=== PATIENT | female | born 1960 | race Caucasian/White ===

== ENCOUNTER → 2017-02-03 | Outpatient (CLI) | payer OTHER ==
[2017-02-03 16:40] LABS: CHLORIDE,CL 103 mmol/L (98-110); SODIUM,NA 140 mmol/L (136-146)
== END ==
LOC: MW.CHFP 16:00
PROVIDERS: ATTEND Emergency Medicine
DX: E66.3 Overweight (principal); L71.9 Rosacea, unspecified
CPT/HCPCS: 36415; 80048; 84443

== ENCOUNTER 2018-05-13 14:48 | Emergency (ER) | payer OTHER ==
[2018-05-13] MEDS ORDERED: Aspirin 81 MG Tab.Chew PO ONE (15:03)
[2018-05-13] MEDS ORDERED: Nitroglycerin 0.4 MG Tab.SL SL PRN (15:03)
[2018-05-13] MEDS ORDERED: Sodium Chloride 0.9% 1,000 ML IV ONE (15:03)
[2018-05-13] MEDS ORDERED: Ketorolac 30 MG/ML SDV IVPUSH ONE (15:05)
--- NOTE | 2018-05-13 15:06 | EDM.PDOC ---
ED HPI GENERAL MEDICAL PROBLEM - General Chief Complaint: Chest Pain Stated Complaint: PAIN UNDER RIGHT BREAST Time Seen by Provider: 05/13/18 15:05 Source of Information: Reports: Patient - History of Present Illness INITIAL COMMENTS - FREE TEXT/NARRATIVE: HISTORY AND PHYSICAL: History of present illness: [Patient presents with chest wall pain below her right breast on the lower rib margins intermittent sharp pain which began after physical therapy a couple of days ago some new exercising She also carries her purse on the right side and has some new cats that she is been chasing around at work in addition to scoliosis I believe all of these contribute to the reproducible chest wall pain/muscle spasm reinserting Current she is asymptomatic at rest however with palpation I can reproduce the symptoms she rates pain 0 out of 10 at rest 3-4 out of 10 with palpation History of cholecystectomy ] Review of systems: As per history of present illness and below otherwise all systems reviewed and negative. Past medical history: As per history of present illness and as reviewed below otherwise noncontributory. Surgical history: As per history of present illness and as reviewed below otherwise noncontributory. Social history: No reported history of drug or alcohol abuse. Family history: As per history of present illness and as reviewed below otherwise noncontributory. Physical exam: HEENT: Atraumatic, normocephalic, pupils reactive, negative for conjunctival pallor or scleral icterus, mucous membranes moist, throat clear, neck supple, nontender, trachea midline. Lungs: Clear to auscultation, breath sounds equal bilaterally, chest nontender to the left I can reproduce chest wall tenderness on the lower right rib margins on the midclavicular line just below the breast Heart: S1S2, regular, negative for clicks, rubs, or JVD. Abdomen: Soft, nondistended, nontender. Negative for masses or hepatosplenomegaly. Negative for costovertebral tenderness. Pelvis: Stable nontender. Genitourinary: Deferred. Rectal: Deferred. Extremities: Atraumatic, negative for cords or calf pain. Neurovascular unremarkable. Neuro: Awake, alert, oriented. Cranial nerves II through XII unremarkable. Cerebellum unremarkable. Motor and sensory unremarkable throughout. Exam nonfocal. Diagnostics: [CBC CMP UA troponin EKG Chest 1 view ] Therapeutics: [ normal saline Toradol ] Rest ice ibuprofen Impression: [ reproducible chest wall pain Chronic history of baseline ] Definitive disposition and diagnosis as appropriate pending reevaluation and review of above. Right Breast Pain Score (Numeric/FACES): 0 - Related Data Allergies Allergy/AdvReac Type Severity Reaction Status Date / Time iodine Allergy Other Verified 05/13/18 14:57 shellfish derived Allergy Other Verified 05/13/18 14:57 sulfamethoxazole Allergy Other Verified 05/13/18 14:57 [From Bactrim] trimethoprim [From Bactrim] Allergy Other Verified 05/13/18 14:57 Home Meds: Home Meds Albuterol Sulfate [Albuterol Sulfate HFA] 1 - 2 puff INH ASDIRECTED PRN [History] Levothyroxine [Synthroid] 50 mcg PO DAILY 05/13/18 [History] Omeprazole 20 mg PO DAILY 05/13/18 [History] Spironolactone 50 mg PO DAILY 05/13/18 [History] Past Medical History Respiratory History: Reports: Asthma 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: Reports: Endometriosis, Other 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: breast implant Musculoskeletal History: Reports: Other (See Below) Other Musculoskeletal History: spine curvature Psychiatric History: Reports: None Dermatologic History: Reports: Melanoma - Infectious Disease History Infectious Disease History: Reports: None - Past Surgical History GI Surgical History: Reports: Cholecystectomy Female Surgical History: Reports: D&C Social & Family History - Family History Family Medical History: Noncontributory - Tobacco Use Smoking Status *Q: Never Smoker - Caffeine Use Caffeine Use: Reports: Coffee - Recreational Drug Use Recreational Drug Use: No ED ROS GENERAL - Review of Systems Review Of Systems: See Below ED EXAM, GENERAL - Physical Exam Exam: See Below Course - Vital Signs Last Recorded V/S: Last Vital Signs Temp 98.0 F 05/13/18 14:57 Pulse 67 05/13/18 14:57 Resp 16 05/13/18 14:57 BP 161/77 H 05/13/18 14:57 Pulse Ox 100 05/13/18 14:57 - Orders/Labs/Meds Orders: Active Orders 24 hr Category Date Time Status EKG Documentation Completion [RC] STAT Care 05/13/18 15:27 Active Chest 1V Frontal [CR] Stat Exams 05/13/18 15:04 Taken UA W/MICROSCOPIC [URIN] Stat Lab 05/13/18 16:09 Ordered Labs: Laboratory Tests 05/13/18 05/13/18 05/13/18 Range/Units 15:10 15:10 16:09 WBC 7.03 (4.0-11.0) K/uL RBC 4.75 (4.30-5.90) M/uL Hgb 14.5 (12.0-16.0) g/dL Hct 41.8 (36.0-46.0) % MCV 88.0 (80.0-98.0) fL MCH 30.5 (27.0-32.0) pg MCHC 34.7 (31.0-37.0) g/dL RDW Std Deviation 41.8 (28.0-62.0) fl RDW Coeff of Miranda 13 (11.0-15.0) % Plt Count 281 (150-400) K/uL MPV 10.10 (7.40-12.00) fL Neut % (Auto) 57.5 (48.0-80.0) % Lymph % (Auto) 31.6 (16.0-40.0) % [place] % (Auto) 8.7 (0.0-15.0) % Eos % (Auto) 1.6 (0.0-7.0) % Baso % (Auto) 0.6 (0.0-1.5) % Neut # (Auto) 4.1 (1.4-5.7) K/uL Lymph # (Auto) 2.2 (0.6-2.4) K/uL [place] # (Auto) 0.6 (0.0-0.8) K/uL Eos # (Auto) 0.1 (0.0-0.7) K/uL Baso # (Auto) 0.0 (0.0-0.1) K/uL Nucleated RBC % 0.0 /100WBC Nucleated RBCs # 0 K/uL Sodium 139 (136-145) mmol/L Potassium 3.6 (3.5-5.1) mmol/L Chloride 104 (98-107) mmol/L Carbon Dioxide 29.0 (21.0-32.0) mmol/L BUN 11 (7.0-18.0) mg/dL Creatinine 0.8 (0.6-1.0) mg/dL Est Cr Clr Drug Dosing 69.81 mL/min Estimated GFR (MDRD) > 60.0 ml/min Glucose 93 (74-106) mg/dL Calcium 9.2 (8.5-10.1) mg/dL Total Bilirubin 0.7 (0.2-1.0) mg/dL AST 22 (15-37) IU/L ALT 25 (14-63) IU/L Alkaline Phosphatase 99 (46-116) U/L Troponin I < 0.050 (0.000-0.056) ng/mL Total Protein 7.7 (6.4-8.2) g/dL Albumin 4.2 (3.4-5.0) g/dL Globulin 3.5 (2.0-3.5) g/dL Albumin/Globulin Ratio 1.2 L (1.3-2.8) Lipase 295 (73-393) U/L Urine Color YELLOW Urine Appearance CLEAR Urine pH 5.5 (5.0-8.0) Ur Specific [place] <= 1.005 (1.001-1.035) Urine Protein NEGATIVE (NEGATIVE) mg/dL Urine Glucose (UA) NEGATIVE (NEGATIVE) mg/dL Urine Ketones NEGATIVE (NEGATIVE) mg/dL Urine Occult Blood NEGATIVE (NEGATIVE) Urine Nitrite NEGATIVE (NEGATIVE) Urine Bilirubin NEGATIVE (NEGATIVE) Urine Urobilinogen 0.2 (<2.0) EU/dL Ur Leukocyte Esterase NEGATIVE (NEGATIVE) Urine RBC 0-1 (0-2/HPF) Urine WBC 0-1 (0-5/HPF) Ur Epithelial Cells RARE (NONE-FEW) Urine Bacteria RARE (NEGATIVE) Meds: Medications Discontinued Medications Generic Name Dose Route Start Last Admin Trade Name Frankq PRN Reason Stop Dose Admin Aspirin 324 mg 05/13/18 15:03 05/13/18 15:16 Aspirin PO 05/13/18 15:04 324 mg ONETIME ONE Administration Sodium Chloride 1,000 mls @ 999 mls/hr 05/13/18 15:03 05/13/18 15:16 Normal Saline IV 05/13/18 16:03 999 mls/hr STAT ONE Administration Ketorolac Tromethamine 30 mg 05/13/18 15:05 05/13/18 15:16 Toradol IVPUSH 05/13/18 15:06 30 mg ONETIME ONE Administration Nitroglycerin 0.4 mg 05/13/18 15:03 Nitrostat SL Q5M PRN Chest Pain Departure - Departure Time of Disposition: 16:36 Disposition: Home, Self-Care 01 Condition: Good Clinical Impression: Chest wall pain - Discharge Information Forms: ED Department Discharge Additional Instructions: Rest Ice or heat whichever gains most benefit Icy hot patches may benefit as discussed Motrin 800 mg every 8 hours 7-10 days Follow-up with primary care in 2 weeks sooner as needed [facility] [address] [place] [id number] The following information is given to patients seen in the emergency department who are being discharged to home. This information is to outline your options for follow-up care. We provide all patients seen in our emergency department with a follow-up referral. The need for follow-up, as well as the timing and circumstances, are variable depending upon the specifics of your emergency department visit. If you don't have a primary care physician on staff, we will provide you with a referral. We always advise you to contact your personal physician following an emergency department visit to inform them of the circumstance of the visit and for follow-up with them and/or the need for any referrals to a consulting specialist. The emergency department will also refer you to a specialist when appropriate. This referral assures that you have the opportunity for follow-up care with a specialist. All of these measure are taken in an effort to provide you with optimal care, which includes your follow-up. Under all circumstances we always encourage you to contact your private physician who remains a resource for coordinating your care. When calling for follow-up care, please make the office aware that this follow-up is from your recent emergency room visit. If for any reason you are refused follow-up, please contact the [facility] emergency department at and asked to speak to the emergency department charge nurse. - My Orders Last 24 Hours: My Active Orders 05/13/18 15:04 Chest 1V Frontal [CR] Stat 05/13/18 15:27 EKG Documentation Completion [RC] STAT 05/13/18 16:09 UA W/MICROSCOPIC [URIN] Stat - Assessment/Plan Last 24 Hours: My Active Orders 05/13/18 15:04 Chest 1V Frontal [CR] Stat 05/13/18 15:27 EKG Documentation Completion [RC] STAT 05/13/18 16:09 UA W/MICROSCOPIC [URIN] Stat
[2018-05-13 15:48] LABS: CHLORIDE,CL 104 mmol/L (98-107); SODIUM,NA 139 mmol/L (136-145)
--- NOTE | 2018-05-14 15:20 | CR ---
EXAM DATE: 05/13/18 PATIENT'S AGE: 57 Patient: MELY HARGROVE Facility: [place], [place] Site . Site : [id number] Study: XRay Chest [id number]/5/2018 3:48:01 PM Ordering Physician: Areli Whitfield Final Report: INDICATION: CHEST PAIN TECHNIQUE: Chest 1 view COMPARISON: None FINDINGS: Cardiovascular and mediastinum: Heart size and vasculature are normal in caliber and appearance. Calcified left hilar lymph nodes. Lungs and pleural space: No focal consolidation. No sign of pleural effusion. No pneumothorax. Bones and soft tissues: Healed remote right clavicular fracture. IMPRESSION: No acute cardiopulmonary disease Dictated by Jaron Stokes MD @ 05/13/2018 4:17:29 PM Dictated by: Jaron Stokes MD @ 05/13/2018 16:17:40 (Electronic Signature) Report Signed by Proxy. [email or web address]
== END 2018-05-13 16:59 | disposition home or self-care (01) ==
LOC: MW.ED 14:48
DX: R07.89 Other chest pain (principal); Z91.013 Allergy to seafood; Z88.2 Allergy status to sulfonamides; Z88.1 Allergy status to other antibiotic agents; Z91.048 Other nonmedicinal substance allergy status
CPT/HCPCS: 36415; 71045; 80053; 81001; 83690; 84484; 85025; 93005; 96361; 96374; 99285; A9270; J1885; J7040

== ENCOUNTER 2021-10-12 17:32 | Emergency (ER) | payer BC, OTHER ==
[2021-10-12] MEDS ORDERED: Sodium Chloride 0.9% 10 ML Syringe FLUSH PRN (17:58)
[2021-10-12] MEDS ORDERED: Sodium Chloride 0.9% 2.5 ML Syringe FLUSH PRN (17:58)
[2021-10-12] MEDS ORDERED: LORazepam 2 MG/ML SDV IVPUSH ONE (18:18)
--- NOTE | 2021-10-12 18:21 | EDM.PDOC ---
ED HPI GENERAL MEDICAL PROBLEM - General Chief Complaint: General Stated Complaint: RAPID HEARTBEAT, HIGH BLOOD PRESSURE Time Seen by Provider: 10/12/21 17:34 Source of Information: Reports: Patient History Limitations: Reports: No Limitations - History of Present Illness INITIAL COMMENTS - FREE TEXT/NARRATIVE: HISTORY AND PHYSICAL: History of present illness: Patient is a 60-year-old female who presents emergency room today with concern of lightheadedness, headache, and palpitations that have been ongoing for the past 1 week. Patient states that she does see an ENT provider as she has been having sinus issues and chronic congestion and was told to start a Rohwer pot rinse. Patient states that she first did this rinse yesterday and has done it today as well. However, patient states that she was having these symptoms prior to the Rohwer pot and has been in the past 1 week. Patient states that she has episodes of palpitations where she feels like her heart is racing but states that her heart is not actually racing and is only 70 to 80 bpm. Patient states that she also has a headache in the front of her head but denies any head injury or loss of consciousness. Patient has a history of hypertension and states that she has been consistent with her medication management. Patient denies fever, chills, chest pain, shortness of breath, or cough. Denies neck stiff ness, change in vision, syncope, or near syncope. Denies nausea, vomiting, abdominal pain, diarrhea, constipation, or dysuria. Has not noted any blood in urine or stool. Patient has been eating and drinking appropriately. Review of systems: As per history of present illness and below otherwise all systems reviewed and negative. Past medical history: As per history of present illness and as reviewed below otherwise noncontributory. Surgical history: As per history of present illness and as reviewed below otherwise noncontributory. Social history: See social history for further information Family history: As per history of present illness and as reviewed below otherwise noncontributory. Physical exam: General: Patient is alert, oriented, and in no acute distress. Patient sitting comfortably on exam table. Vitals stable and reviewed by me. HEENT: Atraumatic, normocephalic, pupils equal and reactive bilaterally, negative for conjunctival pallor or scleral icterus, mucous membranes moist, throat clear, neck supple, nontender, trachea midline. No drooling or trismus noted. No meningeal signs. No hot potato voice noted. Lungs: Clear to auscultation, breath sounds equal bilaterally, chest nontender. Heart: S1S2, regular rate and rhythm without overt murmur Abdomen: Soft, nondistended, nontender. Negative for masses or hepatosplenomegaly. Negative for costovertebral tenderness. Pelvis: Stable nontender. Genitourinary: Deferred. Rectal: Deferred. Skin: Intact, warm, dry. No lesions or rashes noted. Extremities: Atraumatic, negative for cords or calf pain. Neurovascular unremarkable. Neuro: Awake, alert, oriented. Cranial nerves II through XII unremarkable. Cerebellum unremarkable. Motor and sensory unremarkable throughout. Exam nonfocal. Medical Decision Making: Patient is an otherwise healthy 6-year-old female who presents emergency room today with concern of dizziness, headache, and palpitations over the past 1 week worsening over the past several days. On arrival to the ED, patient is vitally stable and well-appearing on exam. However, she does appear somewhat anxious. Exam is otherwise unremarkable. Will obtain cardiac evaluation, given that patient is having a headache, will obtain head CT, and reassess patient. See Dr. Sanchez dictation for specific EKG interpretation. Otherwise, normal sinus rhythm without STEMI. CBC and CMP mild derangements are unremarkable. Troponin negative. TSH is within normal limits. Chest X-ray shows no evidence of acute pulmonary disease. Head CT shows no acute intracranial process. Upon reevaluation of patient, she has improvement of her symptoms today in the emergency room with therapeutics. On further discussion of patient's symptoms, she does state that she had the symptoms a year ago after her father had passed. She did state that she is coming up on the 1 year anniversary and has been feeling more anxious about her father's passing and is concerned that she may have some underlying anxiety related to her symptoms. I did discuss with patient the importance of following up with her primary care provider. I did send patient with an outpatient prescription to get a Holter monitor placed for 2 weeks and to follow-up with her primary care provider for results / further management. Return precautions thoroughly discussed with patient. Discussed importance for follow-up with her primary care provider. Voices understanding and is agreeable to plan of care. Denies any further questions or concerns at this time. Diagnostics: EKG, CBC, CMP, chest x-ray, troponin, TSH, head CT without contrast Therapeutics: Saline, Ativan Prescription: None Impression: Dizziness, unspecified Headache, unspecified Palpitations, unspecified Plan: 1. You can alternate ibuprofen and Tylenol as directed for pain and discomfort. 2. Follow-up with a primary care provider as discussed. Return to the ED as needed and as discussed. 3. Wear the Holter monitor for 2 weeks. Results will be sent to your primary care provider, Dr. Watkins for follow up. Definitive disposition and diagnosis as appropriate pending reevaluation and review of above. - Related Data Allergies Allergy/AdvReac Type Severity Reaction Status Date / Time adhesive Allergy Cannot Verified 10/12/21 17:44 Remember iodine Allergy Swelling Verified 10/12/21 17:44 shellfish derived Allergy Swelling Verified 10/12/21 17:44 sulfamethoxazole Allergy Rash Verified 10/12/21 17:44 [From Bactrim] trimethoprim [From Bactrim] Allergy Rash Verified 10/12/21 17:44 Home Meds: Home Meds Spironolactone 50 mg PO DAILY 05/13/18 [History] amLODIPine [Norvasc] 5 mg PO DAILY 10/12/21 [History] Past Medical History HEENT History: Reports: Other (See Below) Other HEENT History: wears glasses/contacts, has upper partial Respiratory History: Reports: Asthma Gastrointestinal History: Reports: GERD Genitourinary History: Reports: Renal Calculus, UTI, Recurrent 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 History: Reports: Endometriosis, Musculoskeletal History: Reports: Fracture Other Musculoskeletal History: hx fx collarbone and foot Neurological History: Reports: Concussion, Other (See Below) Psychiatric History: Reports: None Endocrine/Metabolic History: Reports: Hypothyroidism Oncologic (Cancer) History: Reports: Malignant Melanoma Dermatologic History: Reports: Melanoma - Infectious Disease History Infectious Disease History: Reports: None - Past Surgical History Head Surgeries/Procedures: Reports: None HEENT Surgical History: Reports: Tonsillectomy GI Surgical History: Reports: Cholecystectomy Female Surgical History: Reports: Breast Implant, D&C, Other (See Below) Other Female Surgeries/Procedures: laparoscopy x3 Dermatological Surgical History: Reports: Skin Biopsy Social & Family History - Family History Family Medical History: No Pertinent Family History - Tobacco Use Tobacco Use Status *Q: Never Tobacco User - Caffeine Use Caffeine Use: Reports: Coffee - Recreational Drug Use Recreational Drug Use: No ED ROS GENERAL - Review of Systems Review Of Systems: Comprehensive ROS is negative, except as noted in HPI. ED EXAM, GENERAL - Physical Exam Exam: See Below (See dictation) Course - Vital Signs Last Recorded V/S: Last Vital Signs Temp 97.4 F 10/12/21 17:47 Pulse 80 10/12/21 20:11 Resp 17 10/12/21 20:11 BP 123/56 L 10/12/21 20:11 Pulse Ox 94 L 10/12/21 20:11 - Orders/Labs/Meds Orders: Active Orders 24 hr Category Date Time Status Saline Lock Insert [OM.PC] Stat Oth 10/12/21 17:58 Ordered Labs: Laboratory Tests 10/12/21 10/12/21 10/12/21 Range/Units 18:00 18:10 18:10 WBC 8.60 (4.0-11.0) K/uL RBC 4.78 (4.30-5.90) M/uL Hgb 14.7 (12.0-16.0) g/dL Hct 42.3 (36.0-46.0) % MCV 88.5 (80.0-98.0) fL MCH 30.8 (27.0-32.0) pg MCHC 34.8 (31.0-37.0) g/dL RDW Std Deviation 40.9 (28.0-62.0) fl RDW Coeff of Miranda 13 (11.0-15.0) % Plt Count 350 (150-400) K/uL MPV 10.60 (7.40-12.00) fL Neut % (Auto) 65.0 (48.0-80.0) % Lymph % (Auto) 25.5 (16.0-40.0) % [place] % (Auto) 8.3 (0.0-15.0) % Eos % (Auto) 0.6 (0.0-7.0) % Baso % (Auto) 0.6 (0.0-1.5) % Neut # (Auto) 5.6 (1.4-5.7) K/uL Lymph # (Auto) 2.2 (0.6-2.4) K/uL [place] # (Auto) 0.7 (0.0-0.8) K/uL Eos # (Auto) 0.1 (0.0-0.7) K/uL Baso # (Auto) 0.1 (0.0-0.1) K/uL Nucleated RBC % 0.0 /100WBC Nucleated RBCs # 0 K/uL Sodium 138 (136-145) mmol/L Potassium 3.5 (3.5-5.1) mmol/L Chloride 100 (98-107) mmol/L Carbon Dioxide 30.7 (21.0-32.0) mmol/L BUN 12 (7.0-18.0) mg/dL Creatinine 0.7 (0.6-1.0) mg/dL Est Cr Clr Drug Dosing 80.01 mL/min Estimated GFR (MDRD) > 60.0 ml/min Glucose 95 (74-106) mg/dL Calcium 9.4 (8.5-10.1) mg/dL Total Bilirubin 0.7 (0.2-1.0) mg/dL AST 26 (15-37) IU/L ALT 38 (14-63) IU/L Alkaline Phosphatase 116 (46-116) U/L Troponin I < 0.050 (0.000-0.056) ng/mL Total Protein 8.5 H (6.4-8.2) g/dL Albumin 4.2 (3.4-5.0) g/dL Globulin 4.3 H (2.6-4.0) g/dL Albumin/Globulin Ratio 1.0 (0.9-1.6) TSH, Ultra Sensitive 3.59 (0.36-3.74) uIU/mL Meds: Medications Discontinued Medications Generic Name Dose Route Start Last Admin Trade Name Freq PRN Reason Stop Dose Admin Lorazepam 2 mg 10/12/21 18:18 10/12/21 18:32 Lorazepam 2 Mg/Ml Sdv IVPUSH 10/12/21 18:19 2 mg ONETIME ONE Administration Sodium Chloride 10 ml 10/12/21 17:58 10/12/21 18:32 Sodium Chloride 0.9% 10 Ml Syringe FLUSH 10 ml ASDIRECTED PRN Administration Keep Vein Open Sodium Chloride 2.5 ml 10/12/21 17:58 10/12/21 18:32 Sodium Chloride 0.9% 2.5 Ml Syringe FLUSH 2.5 ml ASDIRECTED PRN Administration Keep Vein Open Departure - Departure Time of Disposition: 19:56 Disposition: Home, Self-Care 01 Clinical Impression: Headache, Dizziness, Palpitations - Discharge Information Referrals: Jaun Watkins MD [Primary Care Provider] - Forms: ED Department Discharge Additional Instructions: The following information is given to patients seen in the emergency department who are being discharged to home. This information is to outline your options for follow-up care. We provide all patients seen in our emergency department with a follow-up referral. The need for follow-up, as well as the timing and circumstances, are variable depending upon the specifics of your emergency department visit. If you don't have a primary care physician on staff, we will provide you with a referral. We always advise you to contact your personal physician following an emergency department visit to inform them of the circumstance of the visit and for follow-up with them and/or the need for any referrals to a consulting specialist. The emergency department will also refer you to a specialist when appropriate. This referral assures that you have the opportunity for follow-up care with a specialist. All of these measure are taken in an effort to provide you with optimal care, which includes your follow-up. Under all circumstances we always encourage you to contact your private physician who remains a resource for coordinating your care. When calling for follow-up care, please make the office aware that this follow-up is from your recent emergency room visit. If for any reason you are refused follow-up, please contact the [facility] Emergency Department at and asked to speak to the emergency department charge nurse. [facility] [address] [place] [address] [id number] [address] [address] 1. You can alternate ibuprofen and Tylenol as directed for pain and discomfort. 2. Follow-up with a primary care provider as discussed. Return to the ED as needed and as discussed. 3. Wear the Holter monitor for 2 weeks. Results will be sent to your primary care provider, Dr. Watkins for follow up. Sepsis Event Note (ED) - Evaluation Sepsis Screening Result: No Definite Risk - Focused Exam Vital Signs: Vital Signs Temp Pulse Resp BP Pulse Ox 10/12/21 20:11 80 17 123/56 L 94 L 10/12/21 17:47 97.4 F 72 16 139/70 98 - My Orders Last 24 Hours: My Active Orders 10/12/21 17:58 Saline Lock Insert [OM.PC] Stat - Assessment/Plan Last 24 Hours: My Active Orders 10/12/21 17:58 Saline Lock Insert [OM.PC] Stat
[2021-10-12 18:44] LABS: BLOOD UREA NITROGEN,BUN 12 mg/dL (7.0-18.0); CARBON DIOXIDE,CO2 30.7 mmol/L (21.0-32.0); CHLORIDE,CL 100 mmol/L (98-107); GLUCOSE RANDOM 95 mg/dL (74-106); POTASSIUM,K 3.5 mmol/L (3.5-5.1); SODIUM,NA 138 mmol/L (136-145)
--- NOTE | 2021-10-12 18:45 | PCM.EKG ---
#1 Interpretation EKG Date: 10/12/21 Time: 18:21 EKG Interpretation Comments: EKG: As interpreted by ER physician: Daniel: Nonspecific ST-T wave abnormalities Normal axis No evidence of ST elevation DC Normal sinus rhythm heart rate of 65
--- NOTE | 2021-10-12 19:25 | CR ---
INDICATION: Palpitations. COMPARISON: 02/27/2020. FINDINGS: A PA view of the chest was obtained. The cardiac silhouette and pulmonary vasculature are within normal limits. The lungs are clear bilaterally. IMPRESSION: No evidence of acute pulmonary disease. Dictated by Guevara Gracia MD @ 10/12/2021 7:24:29 PM (Electronically Signed)
--- NOTE | 2021-10-12 19:25 | CT ---
Examination: CT brain Indication: Headache Technique: Contiguous axial images from the foramen magnum to the vertex obtained without IV contrast. Coronal and sagittal reformats are generated and reviewed. Comparison: None available Findings: No mass effect or midline shift. Basal cisterns are patent. No space-occupying lesion or intracranial hemorrhage. No edema or other evidence of acute cortical-based infarction. No extra-axial fluid collection. Ventricles and sulci are appropriate for the patient`s age. Visualized portions of the orbits are unremarkable. Paranasal sinuses and mastoid air cells are normal. Impression: No acute intracranial process. Please note that all CT scans at this facility use dose modulation, iterative reconstruction, and/or weight-based dosing when appropriate to reduce radiation dose to as low as reasonably achievable. Dictated by Guevara Uriostegui MD @ 10/12/2021 7:24:05 PM (Electronically Signed)
== END 2021-10-12 20:12 | disposition home or self-care (01) ==
LOC: MW.ED 17:32
DX: R51.9 Headache, unspecified (principal); R42 Dizziness and giddiness; R00.2 Palpitations; E03.9 Hypothyroidism, unspecified; K21.9 Gastro-esophageal reflux disease without esophagitis; Z91.048 Other nonmedicinal substance allergy status; Z91.013 Allergy to seafood; Z88.1 Allergy status to other antibiotic agents
CPT/HCPCS: 36415; 70450; 71045; 80053; 84443; 84484; 85025; 93005; 96374; 99285; J2060

== ENCOUNTER 2025-01-23 11:37 | Emergency (ER) | payer BC, OTHER ==
[2025-01-23] MEDS: Alum Hydrox/Mag Hydrox/Simeth 15 ML, Metoclopramide 5 MG, Lidocaine 2% 5 ML PO ONE (12:19)
[2025-01-23] MEDS: Pantoprazole 40 MG in Sodium Chloride 0.9% 10 ML IVPUSH ONE (12:20)
[2025-01-23 12:25] LABS: BASOPHILS ABSOLUTE AUTO 0.06 K/uL (0.00-0.20); BASOPHILS PERCENT AUTO 0.8 % (0.0-1.0); EOSINOPHILS ABSOLUTE AUTO 0.07 K/uL (0.00-0.45); EOSINOPHILS PERCENT AUTO 0.9 % (0.0-6.0); HEMATOCRIT 45.6 % (37.0-47.0); HEMOGLOBIN 15.1 g/dL (12.0-16.0); IMMATURE GRAN ABSOLUTE AUTO 0.02 K/uL (0.00-0.05); IMMATURE GRAN PERCENT AUTO 0.3 % (0.0-0.4); LYMPHOCYTES ABSOLUTE AUTO 1.99 K/uL (1.00-4.80); LYMPHOCYTES PERCENT AUTO 26.6 % (24.0-44.0); MEAN CORPUSCULAR HEMOGLOBIN 29.2 pg (28.0-32.0); MEAN CORPUSCULAR HGB CONC 33.1 g/dL (32.0-36.0); MEAN CORPUSCULAR VOLUME 88.2 fL (83.0-99.0); MEAN PLATELET VOLUME 10.8 fL (9.4-12.3); MONOCYTES PERCENT AUTO 9.4 % (0.0-8.0); NEUTROPHILS ABSOLUTE AUTO 4.63 K/uL (1.80-7.70); PLATELET COUNT,PLT 283 K/uL (150-400); RED BLOOD CELL COUNT 5.17 M/uL (4.10-5.30); WHITE BLOOD CELL COUNT,WBC 7.47 K/uL (3.9-11.3)
[2025-01-23 12:48] LABS: INR 0.99 (0.86-1.11)
[2025-01-23 12:53] LABS: A/G RATIO 1.1 (0.9-1.6); ALANINE AMINOTRANSFERASE,ALT 23 IU/L (14-63); ALKALINE PHOSPHATASE 123 U/L (46-116); ASPARTATE AMNIOTRANSFERASE,AST 24 IU/L (15-37); BILIRUBIN TOTAL 0.7 mg/dL (0.2-1.0); BLOOD UREA NITROGEN,BUN 9 mg/dL (7.0-18.0); CALCIUM 9.4 mg/dL (8.5-10.1); CARBON DIOXIDE,CO2 30.7 mmol/L (21.0-32.0); CHLORIDE,CL 102 mmol/L (98-107); CREATININE 0.6 mg/dL (0.6-1.0); GLUCOSE RANDOM 105 mg/dL (74-106); LIPASE 59 U/L (16-77); POTASSIUM,K 3.5 mmol/L (3.5-5.1); PRO B-TYPE NATRIUR PEPT,BNPPRO 132 pg/mL (0-125); PROTEIN TOTAL,TP 7.6 g/dL (6.4-8.2); SODIUM,NA 142 mmol/L (136-145)
[2025-01-23 13:00] LABS: ESTIMATED GFR 100 mL/min (>60)
[2025-01-23] MEDS ORDERED: Morphine 2 MG/ML SYRINGE IVPUSH PRN (13:04)
[2025-01-23] MEDS: Ondansetron 4 MG/2 ML SDV IVPUSH ONE (13:12)
== END 2025-01-23 13:26 | disposition home or self-care (01) ==
LOC: MW.ED 11:37
DX: K21.9 Gastro-esophageal reflux disease without esophagitis (principal); J45.909 Unspecified asthma, uncomplicated; E03.9 Hypothyroidism, unspecified; Z90.49 Acquired absence of other specified parts of digestive tract; Z88.8 Allergy status to other drugs, medicaments and biological substances; Z91.041 Radiographic dye allergy status; Z91.013 Allergy to seafood; Z91.048 Other nonmedicinal substance allergy status; Z79.899 Other long term (current) drug therapy
CPT/HCPCS: 36415; 80053; 83690; 83735; 83880; 84484; 85025; 85610; 93005; 96374; 96375; 99285; A9270; J2405; J2470; 93010; 99284